=== PATIENT | male | born 1960 | race Caucasian/White ===

== ENCOUNTER 2018-12-02 19:15 | Observation (INO) ==
[2018-12-02] MEDS ORDERED: Isovue-370 500 ML BOTTLE IVP ONE (19:34)
[2018-12-02] MEDS ORDERED: Nitroglycerin 0.4 MG TAB.SUBL SL STA (19:34)
[2018-12-02 20:21] LABS: Basophils % 0.4 %; Eosinophils # 0.1 K/mcL (0.0-0.6); Eosinophils % 0.7 %; Hematocrit 45.9 % (37.5-50.1); Hemoglobin 14.8 g/dL (12.9-16.9); Immature Granulocytes % 0.2 % (0-4); Lymphocytes # 1.3 K/mcL (0.6-4.6); Mean Corpuscular HGB Conc 32.2 g/dL (31.6-35.5); Mean Corpuscular Hemoglobin 26.2 pg (28.0-33.3); Mean Corpuscular Volume 81.2 fL (83.0-100.0); Mean Platelet Volume 10.5 fL (9.4-12.4); Monocytes # 0.6 K/mcL (0.0-1.3); Monocytes % 7.6 %; Neutrophils # 6.4 K/mcL (1.6-8.9); Platelet Count 279 K/mcL (140-400); Red Blood Count 5.65 M/mcL (4.19-5.50); Red Cell Distribution Width 17.3 % (11.5-14.5); Segmented Neutrophils % 76.1 %
[2018-12-02 20:32] LABS: Calcium 10.1 mg/dL (8.6-10.3); Potassium 3.5 mEq/L (3.5-5.1); Troponin I 0.03 ng/mL (< 0.04)
[2018-12-02] MEDS ORDERED: Nitroglycerin 1 INCH/GM PACKET TP ONE (21:26)
--- NOTE | 2018-12-02 21:31 | Emergency Department Note ---
Disposition Clinical Impression: Chest pain Qualifiers: Chest pain type: unspecified Qualified Code(s): R07.9 - Chest pain, unspecified Disposition: Admitted As Inpatient Condition: Good Referrals: Roseann Victoria CNP [Primary Care Provider] - Forms: ED Satisfaction Letter Time of Disposition: 22:00 General Adult HPI - General Chief complaint: ED Chest Pain Stated complaint: Chest Pain Time Seen by Provider: 12/02/18 19:24 Source: patient, EMS Limitations: no limitations Nursing Notes Reviewed: Yes Vital Signs Reviewed: Yes - History of Present Illness HPI Narrative: 57-year-old gentleman presents for chief complaint of central chest pressure with diaphoresis and mild shortness of breath with exertion just prior to arrival. 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 He went into the cool air and symptoms did not resolve so he came in for evaluation. He denies vomiting, cough or cold, GI or symptoms. He notes mild pedal edema which he states is at baseline. He denies any remitting factors. He took aspirin prior to arrival. He states that he felt fine until this afternoon. He has a CABG more than 10 years ago and states that he had a stress test within the last 2 years which was normal. Pain Scale: 3 - Related Data Home Medications Medication Instructions Recorded Confirmed Allopurinol [Zyloprim 300 MG] 300 mg PO DAILY 02/10/18 12/02/18 Atorvastatin [Lipitor] 40 mg PO HS 02/10/18 12/02/18 BuPROPion SR (12 HR) [Wellbutrin 150 mg PO BID 02/10/18 12/02/18 SR] Cholecalciferol (D-3) [Vitamin D] 5,000 unit PO DAILY 02/10/18 12/02/18 Cyanocobalamin (Vitamin B-12) 500 mcg PO BID 02/10/18 12/02/18 [Vitamin B-12] Furosemide [Lasix] 20 mg PO DAILY 02/10/18 12/02/18 Isosorbide MONOnitrate [Isosorbide 20 mg PO TID 02/10/18 12/02/18 Mononitrate] Multivitamin [One Daily 1 tab PO DAILY 02/10/18 12/02/18 Multivitamin] Pantoprazole Sodium [Protonix] 40 mg PO DAILY 02/10/18 12/02/18 amLODIPine [Norvasc] 5 mg PO DAILY 02/10/18 12/02/18 Calcium Citrate 2 PO BID 12/02/18 Docusate Sodium [Stool Softener] 50 mg PO BID 12/02/18 12/02/18 Tizanidine HCl 4 mg PO BID 12/02/18 12/02/18 Allergies Allergy/AdvReac Type Severity Reaction Status Date / Time Enoxaparin [From Lovenox] Allergy Rash Verified 02/10/18 06:50 NSAIDS (Non-Steroidal AdvReac See Verified 02/10/18 07:49 Anti-Inflamma Comments tape Allergy See Uncoded 04/10/16 09:37 Comments Steroids AdvReac See Uncoded 02/10/18 07:49 Comments All systems ED: reviewed and negative except as stated. Past Medical History - Past Medical History Attestation: Yes The following information was validated with the patient. Source: patient Medical history: Reports: asthma, cancer, diabetes, hyperlipidemia, hypertension, myocardial infarction Surgical history: Reports: cancer surgery, cholecystectomy Psychiatric history: Reports: no psych history - Social History Smoking Status: Former smoker Smokeless Tobacco Status: No Alcohol use: Reports: none Drug use: Reports: none Physical Exam - General Limitations: no limitations General appearance: alert, in no apparent distress - Head Head exam: atraumatic, normocephalic - Eye Eye exam: Present: normal appearance, PERRL - ENT ENT exam: normal exam, normal oropharynx - Neck Neck exam: Present: normal inspection, full ROM - Chest Chest inspection: Present: normal inspection, symmetric chest wall rise. Absent: tenderness - Respiratory Respiratory exam: Present: normal lung sounds bilaterally, respiratory distress - Cardiovascular Cardiovascular exam: Present: regular rate, normal rhythm - Abdominal Exam Abdominal exam: Present: soft, Non-Tender - Extremities Exam Extremities exam: Present: pedal edema (Mild pedal edema which is slightly worse in the right than the left). Absent: tenderness - Back Exam Back exam: Present: normal inspection, full ROM - Neurological Exam Neurological exam: Present: alert, oriented X3, CN II-XII intact - Psychiatric Psychiatric exam: Present: normal affect, normal mood - Skin Skin exam: Present: warm, dry Course Course Narrative: 57-year-old gentleman with multiple comorbidities and prior CAD status post CABG presents for chief complaint of chest pain and lightheadedness. He notes his chest pain is about 75% better after nitroglycerin under his tongue. I gave him nitro paste for further treatment. Initial troponin is negative. EKG interpreted by me shows sinus tachycardia at 105 with left axis deviation and normal intervals. No ST elevation or depression. There is poor R-wave progression. Abnormal EKG. PE study was negative. Patient met in for further evaluation and management of his chest pain. Vital Signs Temperature 98.5 F 12/02/18 19:21 Pulse Rate 103 12/02/18 19:21 Respiratory Rate 16 12/02/18 19:21 Blood Pressure 146/79 12/02/18 19:21 O2 Sat by Pulse Oximetry 95 12/02/18 19:21 Temperature 98.5 F 12/02/18 19:21 Pulse Rate 89 12/02/18 21:45 Respiratory Rate 18 12/02/18 21:45 Blood Pressure 159/105 12/02/18 21:45 O2 Sat by Pulse Oximetry 96 12/02/18 21:45 Oxygen Delivery Oxygen Delivery Room Air Medical Decision Making - Lab Data Result diagrams: 12/02/18 19:41 12/02/18 19:41 Lab Results 12/02/18 12/02/18 Range/Units 19:41 19:41 WBC 8.4 (4.3-11.1) K/mcL RBC 5.65 H (4.19-5.50) M/mcL Hgb 14.8 (12.9-16.9) g/dL Hct 45.9 (37.5-50.1) % MCV 81.2 L (83.0-100.0) fL MCH 26.2 L (28.0-33.3) pg MCHC 32.2 (31.6-35.5) g/dL RDW 17.3 H (11.5-14.5) % Plt Count 279 (140-400) K/mcL MPV 10.5 (9.4-12.4) fL Immature Gran % 0.2 (0-4) % Seg Neutrophils % 76.1 % Lymphocytes % 15.0 % Monocytes % 7.6 % Eosinophils % 0.7 % Basophils % 0.4 % Neutrophils # 6.4 (1.6-8.9) K/mcL Lymphocytes # 1.3 (0.6-4.6) K/mcL Monocytes # 0.6 (0.0-1.3) K/mcL Eosinophils # 0.1 (0.0-0.6) K/mcL Basophils # 0.0 (0.0-0.2) K/mcL Sodium 140 (136-145) mEq/L Potassium 3.5 (3.5-5.1) mEq/L Chloride 103 (98-107) mEq/L Carbon Dioxide 22 L (23-29) mEq/L BUN 23 H (6-20) mg/dL Creatinine 1.62 H (0.70-1.30) mg/dL Est GFR ( Amer) 53 L (> 60) Est GFR (Non-Af Amer) 44 L (> 60) BUN/Creatinine Ratio 14 (6-26) Glucose 125 H (70-105) mg/dL Calculated Osmolality 295 (280-300) Calcium 10.1 (8.6-10.3) mg/dL Troponin I 0.03 (< 0.04) ng/mL
[2018-12-03] MEDS ORDERED: Naloxone 0.4 MG/ML INJ IVP PRN (04:09)
[2018-12-03] MEDS ORDERED: 0.9 % Sodium Chloride 1,000 ML IVC ONE (04:11)
[2018-12-03 05:00] LABS: Hematocrit 42.9 % (37.5-50.1); Hemoglobin 13.9 g/dL (12.9-16.9); Mean Corpuscular HGB Conc 32.4 g/dL (31.6-35.5); Mean Corpuscular Hemoglobin 26.3 pg (28.0-33.3); Mean Corpuscular Volume 81.3 fL (83.0-100.0); Mean Platelet Volume 10.8 fL (9.4-12.4); Platelet Count 268 K/mcL (140-400); Red Blood Count 5.28 M/mcL (4.19-5.50); Red Cell Distribution Width 16.1 % (11.5-14.5)
[2018-12-03 05:27] LABS: BUN/Creatinine Ratio 16 (6-26); Blood Urea Nitrogen 22 mg/dL (6-20); Carbon Dioxide 23 mEq/L (23-29); Chloride 103 mEq/L (98-107); Glucose 128 mg/dL (70-105); Osmolality,Calculated 291 (280-300); Potassium 3.2 mEq/L (3.5-5.1); Sodium 138 mEq/L (136-145); Troponin I 0.05 ng/mL (< 0.04); eGFR For Non-African Americans 52 (> 60)
[2018-12-03 06:36] LABS: Calcium 9.5 mg/dL (8.6-10.3)
--- NOTE | 2018-12-03 06:39 | Internal Med History&Physical ---
Date of Encounter: 12/03/18 Time of Encounter: 04:15 Internal Medicine - H&P: HPI Chief complaint: Chest pain Admitted From: Emergency Dept Plans for Post Hospital Care: Home History of present illness: Mr. Reed is a 57 year old male Patient presented to the emergency room with chest pain. 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 He was able to drive himself home where after discussion with his ambulance was called to bring him to the hospital for further evaluation. He has a history of previous heart attack in 1992, but states that there were no interventions made at that time. He has significant history of hypertension, and had recent adjustments made to his blood pressure medications. He also has significant history of gastric sleeve surgery. In the emergency room patient's initial vital signs showed a heart rate of 103 but otherwise were within normal limits. Initial CBC was within normal limits, and BMP demonstrated an AK I with a creatinine of 1.6 to and a glucose of 125. Troponin was 0.03. Chest x-ray showed no acute process and a CT angiogram showed no evidence of pulmonary embolism. EKG showed sinus tachycardia but no ST changes or ischemia. He was admitted to the hospital for further management. Upon my evaluation, patient is resting comfortably in the hospital bed in no acute distress. He states that his chest pain has improved, and causes only mild discomfort now. There is no radiation of the pain. He denies abdominal pain, nausea, vomiting, diarrhea and constipation. He denies history of kidney problems and diabetes. He has a family history of heart attack and stroke on his father's side of the family and his mother had Raina's disease. He is a full code. Past Med Surg Social Fam HX - Past Medical History Medical history: asthma, cancer, diabetes, hyperlipidemia, hypertension, myocardial infarction Additional medical history: breast cancer Psychiatric history: no psych history - Past Surgical History Surgical History: cholecystectomy, orthopedic, other Additional surgical history: left breast removal, gastric sleeve, Right ankle fusion - Social History Smoking Status: Former smoker Smokeless Tobacco Status: No Alcohol use: none Drug use: none - Family History Father Living Status: Still Living Hx Family Cardiac Disorders: Yes (Mi) Hx Family Neurologic Disorders: Yes (CVA) Mother Living Status: Hx Family Respiratory Disorders: Yes (Jada's) Internal Medicine - H&P: Meds Allopurinol [Zyloprim 300 MG] 300 mg PO DAILY 02/10/18 [History] Atorvastatin [Lipitor] 40 mg PO HS 02/10/18 [History] BuPROPion SR (12 HR) [Wellbutrin SR] 150 mg PO BID 02/10/18 [History] Cholecalciferol (D-3) [Vitamin D] 5,000 unit PO DAILY 02/10/18 [History] Cyanocobalamin (Vitamin B-12) [Vitamin B-12] 500 mcg PO BID 02/10/18 [History] Furosemide [Lasix] 20 mg PO DAILY 02/10/18 [History] Isosorbide MONOnitrate [Isosorbide Mononitrate] 20 mg PO TID 02/10/18 [History] Multivitamin [One Daily Multivitamin] 1 tab PO DAILY 02/10/18 [History] Pantoprazole Sodium [Protonix] 40 mg PO DAILY 02/10/18 [History] amLODIPine [Norvasc] 5 mg PO DAILY 02/10/18 [History] Calcium Citrate 2 PO BID 12/02/18 [History] Docusate Sodium [Stool Softener] 50 mg PO BID 12/02/18 [History] Tizanidine HCl 4 mg PO BID 12/02/18 [History] Allergy/AdvReac Type Severity Reaction Status Date / Time Enoxaparin [From Lovenox] Allergy Rash Verified 02/10/18 06:50 NSAIDS (Non-Steroidal AdvReac See Verified 02/10/18 07:49 Anti-Inflamma Comments tape Allergy See Uncoded 04/10/16 09:37 Comments Steroids AdvReac See Uncoded 02/10/18 07:49 Comments All Systems PM: A 10-system review of systems was performed and is negative for pertinent findings except as documented above in the HPI. - Constitutional Vitals: Temp Pulse Resp BP Pulse Ox 97.9 F 60 16 134/75 97 12/03/18 03:10 12/03/18 03:10 12/03/18 03:10 12/03/18 03:10 12/03/18 03:10 General appearance: Present: cooperative, A&O X 3, pleasant, no acute distress, obese, answers questions appropriately Exam: - - Head Head exam: Present: normal inspection - Eye Eye exam: Present: EOMI, normal appearance - Respiratory Respiratory exam: Present: CTAB. Absent: rales, respiratory distress, rhonchi, wheezes - Cardiovascular Cardiovascular exam: Present: RRR. Absent: diastolic murmur, systolic murmur - GI/Abdominal GI/Abdominal exam: Present: normal bowel sounds, soft. Absent: tenderness - Extremities Exam Extremities exam: Present: warm, radial pulses palpable and symmetrical. Absent: calf tenderness, pedal edema, tenderness - Neurological Exam Neurological exam: Present: no focal deficits, strengths equal and symetr throughout. Absent: motor sensory deficit, facial droop, speech deficit - Skin Skin exam: Present: dry, normal color, warm Internal Med - H&P Results - Labs CBC & Chem 7: 12/03/18 03:57 12/03/18 03:57 Labs: Short CBC 12/02/18 12/03/18 Range/Units 19:41 03:57 WBC 8.4 6.1 (4.3-11.1) K/mcL Hgb 14.8 13.9 (12.9-16.9) g/dL Hct 45.9 42.9 (37.5-50.1) % Plt Count 279 268 (140-400) K/mcL Neutrophils # 6.4 (1.6-8.9) K/mcL BMP 12/02/18 12/03/18 19:41 03:57 Sodium 140 138 Potassium 3.5 3.2 L Chloride 103 103 Carbon Dioxide 22 L 23 BUN 23 H 22 H Creatinine 1.62 H 1.40 H Glucose 125 H 128 H Calcium 10.1 Cardiac Enzymes 12/02/18 12/03/18 Range/Units 19:41 03:57 Troponin I 0.03 0.05 H* (< 0.04) ng/mL - Impressions ITS Impressions Chest X-Ray 12/02/18 19:25 IMPRESSION: No acute process. D/ / Khris Cason MD / Khris Cason MD Interpreting Provider: Khris Cason MD Chest CTA 12/02/18 19:33 IMPRESSION: No evidence of pulmonary embolism or acute pulmonary abnormality. D/ / Lon Jang MD / Lon Jang MD Interpreting Provider: Lon Jang MD - Assessment and Plan (1) Chest pain Current Visit: Yes Status: Acute Assessment and plan: Patient presented with chest pain, particularly with exertion. Initial troponin was 0.03, and on repeat troponin was 0.05. Patient's chest pain has improved, and EKG is negative for ischemia. Continue to trend troponins Cardiac monitoring Echocardiogram in the morning Consider anticoagulation if troponin continue to elevate, consult cardiology. Patient has an allergy to enoxaparin, causing a rash. We will hold off on heparin for now Qualifiers: Chest pain type: unspecified Qualified Code(s): R07.9 - Chest pain, unspecified (2) Acute kidney injury Current Visit: Yes Status: Acute Assessment and plan: Patient's renal function on admission showed a creatinine of 1.6 to in a GFR of 44. Patient denied history of kidney disease. On repeat labs patient's creatinine improved 1.40. Continue IV fluid hydration Avoid nephrotoxic medications (3) Hypertension Current Visit: Yes Status: Acute Assessment and plan: Currently controlled. Continue to monitor Continue home meds at discharge Qualifiers: Hypertension type: essential hypertension Qualified Code(s): I10 - Essential (primary) hypertension (4) DVT prophylaxis Current Visit: Yes Status: Acute Assessment and plan: SCDs - Time Spent With Patient Total time spent is greater than 50% in coordination of care (as documented) at patient's floor/unit and/or counseling patient: Greater than 35 minutes
--- NOTE | 2018-12-03 09:37 | Electrocardiograph Report ---
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
[2018-12-03] MEDS ORDERED: Regadenoson 0.4 MG/5 ML SYRINGE IVP ONE ×2 (12:01→12:03)
--- NOTE | 2018-12-03 12:39 | Electrocardiograph Report ---
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
--- NOTE | 2018-12-03 12:45 | Internal Med Progress Note ---
Hospitalist Progress Note - Encounter Date of Encounter: 12/03/18 Time of Encounter: 11:15 - Subjective Interval History: Mr. Reed is a 57 year old male with known PMH of HTN, HLD, DM2 ad ?? [place] and morbidly obese pt presented to ER with sub sternal CP associated with SOB and diaphoresis. 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 He denied any active CP Now. His Trop peaked at 0.05 and trended down to 0.04. Denied any active CP now. - Exam Vitals: Temp Pulse Resp BP Pulse Ox 98.0 F 59 15 155/88 95 12/03/18 11:52 12/03/18 11:52 12/03/18 11:52 12/03/18 11:52 12/03/18 11:52 Exam: Gen: Alert, awake, Oriented to time,place and person Chest: Diminished breath sounds B/L, No wheezing, No crackles, No rales Heart: S1S2+ RRR No murmurs Abd: Soft, NT, BS +, No organomegaly Ext: No edema, pulses are palpable, No calf tenderness Neuro : Benign findings Skin: No rash. - Assessment and Plan (1) Chest pain Current Visit: Yes Status: Acute Assessment and Plan: His trop peaked at 0.05 and came down to 0.04 elevated troponin mostly demand ischemia as well as due to ABHI too However since he is high risk for ACS, will do stress test He does need 2 days stress cont ASA, Statin and BB (2) Acute kidney injury Current Visit: Yes Status: Acute Assessment and Plan: Due to dehydration cont gentle IVF trend on Cr (3) HLD (hyperlipidemia) Current Visit: Yes Status: Chronic Assessment and Plan: On statin (4) Hypertension Current Visit: Yes Status: Acute Assessment and Plan: stable BP resumed all home meds (5) Morbid obesity with BMI of 50.0-59.9, adult Current Visit: Yes Status: Acute Assessment and Plan: Counseled to loose weight and diet modifications - Time Spent with Patient Total time spent is greater than 50% in coordination of care (as documented) at patient's floor/unit and/or counseling patient: Internal Medicine: Result - Labs CBC & Chem 7: 12/03/18 03:57 12/03/18 03:57 Labs: Short CBC 12/02/18 12/03/18 Range/Units 19:41 03:57 WBC 8.4 6.1 (4.3-11.1) K/mcL Hgb 14.8 13.9 (12.9-16.9) g/dL Hct 45.9 42.9 (37.5-50.1) % Plt Count 279 268 (140-400) K/mcL Neutrophils # 6.4 (1.6-8.9) K/mcL BMP 12/02/18 12/03/18 19:41 03:57 Sodium 140 138 Potassium 3.5 3.2 L Chloride 103 103 Carbon Dioxide 22 L 23 BUN 23 H 22 H Creatinine 1.62 H 1.40 H Glucose 125 H 128 H Calcium 10.1 9.5 Cardiac Enzymes 12/02/18 12/03/18 12/03/18 Range/Units 19:41 03:57 09:53 Troponin I 0.03 0.05 H* 0.04 H* (< 0.04) ng/mL - Impressions Impressions Chest X-Ray 12/02/18 19:25 IMPRESSION: No acute process. D/ / Khris Cason MD / Khris Cason MD Interpreting Provider: Khris Cason MD Chest CTA 12/02/18 19:33 IMPRESSION: No evidence of pulmonary embolism or acute pulmonary abnormality. D/ / Lon Jang MD / Lon Jang MD Interpreting Provider: Lon Jang MD Echocardiogram 12/03/18 06:35 Impressions: LVEF 55-60%. Mild concentric left ventricular hypertrophy. Mild left ventricular diastolic dysfunction. Normal right ventricular structure and function. Mild tricuspid regurgitation. No pulmonary hypertension. Left Ventricular Wall Motion: Rest Echo Findings All wall segments showed normal motion. Findings: Study Quality * Technically adequate exam. ECG Findings * Normal sinus rhythm. Left Ventricle * LVEF 55-60%. * Mild concentric left ventricular hypertrophy. * Mild left ventricular diastolic dysfunction. Right Ventricle * Normal right ventricular structure and function. Left Atrium * Moderately dilated left atrium. Right Atrium * Normal right atrial size. Aortic Valve * Aortic valve not well visualized. * No aortic regurgitation. * No aortic stenosis. Mitral Valve * No mitral regurgitation. * Normal mitral valve structure. * No mitral stenosis. Tricuspid Valve * Tricuspid valve not well visualized. * Mild tricuspid regurgitation. * Estimated RA pressure is 3 mmHg. * Estimated RVSP is 24 mmHg. * No pulmonary hypertension. Pulmonic Valve * Pulmonic valve is not well visualized. * No pulmonic stenosis. * No pulmonic regurgitation. Pulmonary Artery * Pulmonary artery not well visualized. Aorta * Normally sized aortic root. Pericardium * There is no pericardial effusion present. Interatrial Septum * No evidence of PFO by color Doppler. IVC * Normal IVC dimensions and inspiratory collapse. Consult Discharge Plan - Plan Referrals: Roseann Victoria CNP [Primary Care Provider] - 12/08/18 8:30 am (1) Chest pain Qualifiers: Chest pain type: unspecified Qualified Code(s): R07.9 - Chest pain, unspecified (3) HLD (hyperlipidemia) Qualifiers: Hyperlipidemia type: unspecified Qualified Code(s): E78.5 - Hyperlipidemia, unspecified (4) Hypertension Qualifiers: Hypertension type: essential hypertension Qualified Code(s): I10 - Essential (primary) hypertension
[2018-12-03] MEDS: amLODIPine 5 MG TABLET PO SCH (14:20)
[2018-12-03] MEDS: ISOSORBIDE MONONITRATE 20 MG PO SCH ×2 (14:22→20:40)
[2018-12-03] MEDS: tiZANidine 4 MG TABLET PO SCH (20:39)
[2018-12-03] MEDS: BuPROPion SR (12 HR) 150 MG TABLET PO SCH (20:39)
[2018-12-03] MEDS: Docusate Oral Soln 100 MG/10 ML UDC PO SCH (20:39)
[2018-12-04 07:00] LABS: BUN/Creatinine Ratio 15 (6-26); Blood Urea Nitrogen 18 mg/dL (6-20); Calcium 9.1 mg/dL (8.6-10.3); Carbon Dioxide 26 mEq/L (23-29); Chloride 105 mEq/L (98-107); Glucose 107 mg/dL (70-105); Osmolality,Calculated 292 (280-300); Potassium 3.5 mEq/L (3.5-5.1); Sodium 140 mEq/L (136-145); eGFR For Non-African Americans > 60 (> 60)
[2018-12-04] MEDS: Docusate Oral Soln 100 MG/10 ML UDC PO SCH ×2 (09:00→20:32)
[2018-12-04] MEDS: Aspirin Enteric Coated 81 MG Tablet PO SCH (09:00)
[2018-12-04] MEDS: BuPROPion SR (12 HR) 150 MG TABLET PO SCH ×2 (09:00→20:32)
[2018-12-04] MEDS: tiZANidine 4 MG TABLET PO SCH ×2 (09:00→20:32)
[2018-12-04] MEDS: Multivit/Ca/Min/Fe/FA 1 TAB TABLET PO SCH (09:00)
[2018-12-04] MEDS: Furosemide 20 MG TABLET PO SCH (09:00)
[2018-12-04] MEDS: amLODIPine 5 MG TABLET PO SCH (09:01)
[2018-12-04] MEDS: ISOSORBIDE MONONITRATE 20 MG PO SCH ×3 (09:01→20:32)
--- NOTE | 2018-12-04 13:47 | Cardiology Consult Note ---
Date of Encounter: 12/04/18 Time of Encounter: 13:45 Assessment and Plan (1) Abnormal stress test Current Visit: Yes Status: Acute Presented with chest pain associated with dyspnea, diaphoresis. Was intermittent until last night, now resolved. No alleviating or exacerbating factors. Risk factors HTN, HLD, DM, obesity. Troponin 0.03, 0.05, 0.04 in setting of ABHI (now resolved). Underwent 2 day stress test which showed perfusion imaging was positive for ischemia. There is a small sized reversible perfusion defect which is mild to moderate in intensity in the basal- and mid-inferior segments. SDS=3. Gated EF = 58%. Cardiology consulted for further recs. TTE LVEF 55-60%. Mild cLVH. Mild LVDD. Normal RV structure and function. Mild TR. No phtn. Discussed with pt medical management vs LHC. He would like to proceed with LHC. R/B/A discussed. LHC tomorrow. (2) Chest pain Current Visit: Yes Status: Acute As above. Qualifiers: Chest pain type: unspecified Qualified Code(s): R07.9 - Chest pain, unspecified Discussion w patient/family: The assessment and plan as outlined above was discussed with the patient and/or family members who expressed understanding and agreement. All questions were answered. Thank you for involving us in the care of your patient. Please call with any questions. I will discuss all the above with Dr. Gomez and make changes as necessary. History of Present Illness Consult date: 12/04/18 Requesting physician: Kyra Tilley Consult reason: abnormal stress Chief complaint: chest pain History of present illness: Mr. Reed is a 57 year old male with PMH of HTN, HLD, DM, obesity s/p gastric sleeve surgery that presented to the ED with chest pain. 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 He was able to drive himself home where he then called EMS. Chest pain was intermittent before resolving last night. Reports he had a heart attack in 1992, but states he never had a LHC. ABHI on admission with creatinine of 1.60 now improved. Troponin 0.03, 0.05, 0.04. CXR showed no acute process and a CT angiogram showed no evidence of pulmonary embolism. He underwent a 2 day stress test which showed perfusion imaging was positive for ischemia. There is a small sized reversible perfusion defect which is mild to moderate in intensity in the basal- and mid-inferior segments. SDS=3. Gated EF = 58%. Cardiology consulted for further recs. TTE LVEF 55-60%. Mild cLVH. Mild LVDD. Normal RV structure and function. Mild TR. No phtn. Past Med Surg Social Fam HX - Past Medical History Medical history: asthma, cancer, diabetes, hyperlipidemia, hypertension, myocardial infarction Additional medical history: breast cancer Psychiatric history: no psych history - Past Surgical History Surgical History: cholecystectomy, orthopedic, other Additional surgical history: left breast removal, gastric sleeve, Right ankle fusion - Social History Smoking Status: Former smoker Smokeless Tobacco Status: No Alcohol use: none Drug use: none - Family History Father Living Status: Still Living Hx Family Cardiac Disorders: Yes (Mi) Hx Family Neurologic Disorders: Yes (CVA) Mother Living Status: Hx Family Respiratory Disorders: Yes (Jada's) Medications and Allergies Allopurinol [Zyloprim 300 MG] 300 mg PO DAILY 02/10/18 [History] Atorvastatin [Lipitor] 40 mg PO HS 02/10/18 [History] BuPROPion SR (12 HR) [Wellbutrin SR] 150 mg PO BID 02/10/18 [History] Cholecalciferol (D-3) [Vitamin D] 5,000 unit PO DAILY 02/10/18 [History] Cyanocobalamin (Vitamin B-12) [Vitamin B-12] 500 mcg PO DAILY 02/10/18 [History] Furosemide [Lasix] 20 mg PO DAILY 02/10/18 [History] Isosorbide MONOnitrate [Isosorbide Mononitrate] 20 mg PO TID 02/10/18 [History] Multivitamin [One Daily Multivitamin] 1 tab PO DAILY 02/10/18 [History] Pantoprazole Sodium [Protonix] 40 mg PO DAILY 02/10/18 [History] amLODIPine [Norvasc] 5 mg PO DAILY 02/10/18 [History] Ca Citrate/Mgox/Vit D3/B6/Min [Calcium Citrate Plus Tablet] 2 each PO DAILY 12/02/18 [History] Docusate Sodium [Stool Softener] 100 mg PO BID 12/02/18 [History] Tizanidine HCl 8 mg PO HS 12/02/18 [History] HYDROcodone/Acet 10/325 mg [[place] 10-325 mg] 1 tab PO Q12H PRN 12/04/18 [History] Losartan Potassium 50 mg PO DAILY 12/04/18 [History] Allergy/AdvReac Type Severity Reaction Status Date / Time Enoxaparin [From Lovenox] Allergy Rash Verified 12/04/18 10:49 NSAIDS (Non-Steroidal AdvReac See Verified 12/04/18 10:49 Anti-Inflamma Comments tape Allergy See Uncoded 12/04/18 10:49 Comments Steroids AdvReac See Uncoded 12/04/18 10:49 Comments All Systems Review: The remainder of the systems were reviewed and are negative - Cardiovascular Cardiovascular: as per HPI, chest pain at rest, diaphoresis Physical Examination Vital Signs, Last 4 Hours Temp Pulse Resp BP Pulse Ox 12/04/18 12:27 97.5 F L 78 16 132/62 96 Vital Signs Temp Pulse Resp BP Pulse Ox 12/04/18 12:27 97.5 F L 78 16 132/62 96 12/03/18 23:32 55 17 138/69 95 12/03/18 19:22 97.7 F 63 14 143/71 95 12/03/18 15:51 97.6 F 81 17 175/79 97 Intake and Output 12/03/18 12/04/18 12/04/18 23:59 07:59 15:59 Intake Total 350 / 1590 360 / 360 Balance 350 / 1590 360 / 360 Intake: Oral 350 / 590 360 / 360 Other: Meal water pitcher Breakfast Percent of Meal Consumed 95% General: Conversant, No Apparent Distress HEENT: Atraumatic, Normocephaly, Mucus Membranes Moist Neck: No JVD, Normal carotid pulses Cardiac: Reg Rate and Rhythm, Normal S1 and S2, No Murmur Lungs: Normal Breath Sounds, No Wheeze, Rales, Rhonchi Neuro: Alert and responsive, No focal deficits noted Abdomen: Soft, Non-Tender Skin: No rashes noted on visualized skin Musculoskeletal: No Chest Wall Tenderness Extremities: No Clubbing, No Cyanosis, No Edema, Normal Pulses Results 12/03/18 03:57 12/04/18 05:03 Lab Results 12/04/18 05:03 Sodium 140 Potassium 3.5 Chloride 105 Carbon Dioxide 26 BUN 18 Creatinine 1.21 Glucose 107 H Calcium 9.1 BMP 12/04/18 Range/Units 05:03 Sodium 140 (136-145) mEq/L Potassium 3.5 (3.5-5.1) mEq/L Chloride 105 (98-107) mEq/L Carbon Dioxide 26 (23-29) mEq/L BUN 18 (6-20) mg/dL Creatinine 1.21 (0.70-1.30) mg/dL Glucose 107 H (70-105) mg/dL Calcium 9.1 (8.6-10.3) mg/dL Active Medications Allopurinol (Zyloprim) 300 mg PO DAILY [facility] Stop: 06/05/19 09:01 Last Admin: 12/04/18 09:01 Dose: 300 mg Documented by: Amlodipine Besylate (Norvasc) 5 mg PO DAILY [facility]; Protocol Stop: 06/04/19 11:31 Last Admin: 12/04/18 09:01 Dose: 5 mg Documented by: Aspirin (Aspirin Ec) 81 mg PO DAILY [facility] Stop: 06/05/19 09:01 Last Admin: 12/04/18 09:00 Dose: 81 mg Documented by: Atorvastatin Calcium (Lipitor) 40 mg PO HS [facility] Stop: 06/04/19 21:01 Last Admin: 12/03/18 20:39 Dose: 40 mg Documented by: Bupropion HCl (Wellbutrin Sr) 150 mg PO BID [facility] Stop: 06/04/19 21:01 Last Admin: 12/04/18 09:00 Dose: 150 mg Documented by: Docusate Sodium (Colace) 50 mg PO BID [facility] Stop: 06/04/19 21:01 Last Admin: 12/04/18 09:00 Dose: Not Given Documented by: Furosemide (Lasix) 20 mg PO DAILY [facility] Stop: 06/05/19 09:01 Last Admin: 12/04/18 09:00 Dose: 20 mg Documented by: Multivitamins/Calcium (Thera M Plus) 1 tab PO DAILY [facility] Stop: 06/05/19 09:01 Last Admin: 12/04/18 09:00 Dose: 1 tab Documented by: Naloxone HCl (Narcan) 0.4 mg IVP Q2MPRN PRN PRN Reason: SEE COMMENTS Stop: 11/28/19 04:10 Omeprazole (Prilosec) 20 mg PO 0730 [facility] Stop: 06/05/19 07:31 Last Admin: 12/04/18 05:51 Dose: Not Given Documented by: Pharmacy Profile Note (Patient Taking Own Medication) 1 each PO TID [facility] Stop: 06/04/19 15:01 Last Admin: 12/04/18 09:01 Dose: Not Given Documented by: Tizanidine HCl (Zanaflex) 4 mg PO BID [facility] Stop: 06/04/19 21:01 Last Admin: 12/04/18 09:00 Dose: 4 mg Documented by: - Imaging and Cardiology Stress Test: report reviewed Echo: report reviewed - EKG Interpretation EKG results cardiology: personally reviewed Consult Discharge Plan - Plan Referrals: Roseann Victoria CNP [Primary Care Provider] - 12/08/18 8:30 am
--- NOTE | 2018-12-04 14:40 | Internal Med Progress Note ---
Hospitalist Progress Note - Encounter Date of Encounter: 12/04/18 Time of Encounter: 14:33 - Subjective Interval History: Mr. Reed is a 57 year old male with known PMH of HTN, HLD, DM2 ad ?? MO and morbidly obese pt presented to ER with sub sternal CP associated with SOB and diaphoresis. He was admitted in the hospital and placed him on cardiac specialist. He denied any active CP Now. His Trop peaked at 0.05 and trended down to 0.04. Denied any active CP now. He did go for nuclear stress test. No events over night. - Exam Vitals: Temp Pulse Resp BP Pulse Ox 97.5 F L 78 16 132/62 96 12/04/18 12:27 12/04/18 12:27 12/04/18 12:27 12/04/18 12:27 12/04/18 12:27 Exam: Gen: Alert, awake, Oriented to time,place and person Chest: Diminished breath sounds B/L, No wheezing, No crackles, No rales Heart: S1S2+ RRR No murmurs Abd: Soft, NT, BS +, No organomegaly Ext: No edema, pulses are palpable, No calf tenderness Neuro : Benign findings Skin: No rash. - Assessment and Plan (1) Chest pain Current Visit: Yes Status: Acute Assessment and Plan: His trop peaked at 0.05 and came down to 0.04 elevated troponin mostly demand ischemia as well as due to ABHI too However since he is high risk for ACS, he did go for nuclear stress test. His nuclear stress test came back as abnormal with small sized reversible perfusion defect which is mild to moderate in intensity in the basal- and mid- inferior segments cont ASA, Statin and BB consulted cardiology for further evaluation.. Scheduled for LHC in AM (2) Acute kidney injury Current Visit: Yes Status: Acute Assessment and Plan: Due to dehydration Improving Cr @ 1.21 today He might have mild CKD-2 too Cont trend on Cr started him Acetylcystiene for renal protection since he is going for LHC in AM (3) HLD (hyperlipidemia) Current Visit: Yes Status: Chronic Assessment and Plan: On statin (4) Hypertension Current Visit: Yes Status: Acute Assessment and Plan: stable BP resumed all home meds (5) Morbid obesity with BMI of 50.0-59.9, adult Current Visit: Yes Status: Acute Assessment and Plan: Counseled to loose weight and diet modifications - Time Spent with Patient Total time spent is greater than 50% in coordination of care (as documented) at patient's floor/unit and/or counseling patient: Internal Medicine: Result - Labs CBC & Chem 7: 12/03/18 03:57 12/04/18 05:03 Labs: BMP 12/04/18 05:03 Sodium 140 Potassium 3.5 Chloride 105 Carbon Dioxide 26 BUN 18 Creatinine 1.21 Glucose 107 H Calcium 9.1 Consult Discharge Plan - Plan Referrals: Roseann Victoria, [employer] [Primary Care Provider] - 12/08/18 8:30 am (1) Chest pain Qualifiers: Chest pain type: unspecified Qualified Code(s): R07.9 - Chest pain, unspecified (3) HLD (hyperlipidemia) Qualifiers: Hyperlipidemia type: unspecified Qualified Code(s): E78.5 - Hyperlipidemia, unspecified (4) Hypertension Qualifiers: Hypertension type: essential hypertension Qualified Code(s): I10 - Essential (primary) hypertension
[2018-12-04] MEDS: Isosorbide MONOnitrate (24 HR) 60 MG TAB.ER.24H PO SCH (14:54)
[2018-12-04] MEDS: *HR* Acetylcysteine 20% 600 MG/3 ML ORAL SYRINGE PO SCH (20:31)
[2018-12-05 08:19] LABS: BUN/Creatinine Ratio 15 (6-26); Blood Urea Nitrogen 13 mg/dL (6-20); Calcium 8.6 mg/dL (8.6-10.3); Carbon Dioxide 25 mEq/L (23-29); Chloride 109 mEq/L (98-107); Glucose 108 mg/dL (70-105); Osmolality,Calculated 289 (280-300); Potassium 3.5 mEq/L (3.5-5.1); Sodium 139 mEq/L (136-145); eGFR For Non-African Americans > 60 (> 60)
[2018-12-05] MEDS: *HR* Acetylcysteine 20% 600 MG/3 ML ORAL SYRINGE PO SCH (08:35)
[2018-12-05] MEDS: Aspirin Enteric Coated 81 MG Tablet PO SCH (08:36)
[2018-12-05] MEDS: Docusate Oral Soln 100 MG/10 ML UDC PO SCH (08:36)
[2018-12-05] MEDS: BuPROPion SR (12 HR) 150 MG TABLET PO SCH (08:36)
[2018-12-05] MEDS: Isosorbide MONOnitrate (24 HR) 60 MG TAB.ER.24H PO SCH (08:37)
[2018-12-05] MEDS: Multivit/Ca/Min/Fe/FA 1 TAB TABLET PO SCH (08:37)
[2018-12-05] MEDS: tiZANidine 4 MG TABLET PO SCH (08:37)
[2018-12-05] MEDS: amLODIPine 5 MG TABLET PO SCH (08:37)
[2018-12-05] MEDS: ISOSORBIDE MONONITRATE 20 MG PO SCH ×2 (08:37→12:23)
[2018-12-05] MEDS: Furosemide 20 MG TABLET PO SCH (08:37)
--- NOTE | 2018-12-05 10:49 | Pre-Sedation Evaluation ---
Pre-sedation evaluation - Pre-sedation checklist Date of procedure: 12/05/18 Procedure: cardiac cath Recent Vitals: Last Vital Signs Temp 97.9 F 12/05/18 06:50 Pulse 55 12/05/18 06:50 Resp 15 12/05/18 06:50 BP 128/77 12/05/18 06:50 Pulse Ox 93 12/05/18 06:50 H&P (including ROS) documented in medical record: Yes Previous reaction to sedatives/anesthetics: No Dietary Status: NPO after Midnight Airway Assessment: Patient can open mouth completely, TMJ function normal Dentition: No loose teeth or bridges Possible difficult airway: No ASA Classification *see protocol: CLASS II-Mild systemic disease Plan of Care: Pt appropriate candidate for procedure/moderate/conscious sedation Cardiac Registry (Cardio Only) - Functional Capacity Functional Capacity: >=4 METS with symptoms - Clincal Frailty Scale Clinical Frailty Scale: Well
[2018-12-05] MEDS ORDERED: 0.9 % Sodium Chloride 1,000 ML ONE ×2 (10:52)
[2018-12-05] MEDS ORDERED: Heparin 1,000 UNITS/500 mL 500 ML ONE ×2 (10:52→10:57)
[2018-12-05] MEDS ORDERED: *HR* Heparin 10,000 UNIT/10 ML VIAL ONE (10:52)
[2018-12-05] MEDS ORDERED: ISOVUE-370 200 ML INFUS..BTL ONE ×2 (10:52→10:57)
[2018-12-05] MEDS ORDERED: Nitroglycerin 1,000 MCG/10 ML VIAL IV ONE (10:52)
[2018-12-05] MEDS ORDERED: *HR* Midazolam HCl 2 MG/2 ML VIAL ONE (11:08)
[2018-12-05] MEDS ORDERED: Verapamil 5 MG/2 ML VIAL ONE (11:16)
[2018-12-05] MEDS ORDERED: Acetaminophen 325 MG TABLET PO PRN (11:46)
--- NOTE | 2018-12-05 11:46 | Event Note ---
Date of Encounter: 12/05/18 Time of Encounter: 11:45 - Cardiology Event Note Cath Completed LVEF 55% NOrmal dominant right with no disease Normal left coronary artery Recommend BP control non cardiac evaluation.
--- NOTE | 2018-12-05 11:57 | Invasive Diagnostic Lab Proc ---
Name: Delta Reed Date of Study: 12/05/2018 Date: 1960 Ht: 66.9in Medical Record#: [id number] Age: 57 Wt: 330.69lb Gender: Male BSA: 2.5 Order #: [id number] BMI: 51.9 Physicians Procedure Physician: Pete Archer MD Referring MD: Referring MD: Staff Name Position Time In Warren Rust RN Monitor 11:05 AM Tahira Campbell RT Scrub 11:08 AM Pinky Kothari RT (R) rt 11:08 AM Román Drew RN Nurse 11:14 AM Crystal Parekh RN Car Hopper 11:18 AM Procedures Performed Procedure L HRT ARTERY/VENTRICLE ANGIO Pre-Procedure Checklist Informed consent is complete signed and on chart. H&P is on chart. ID band is on and ID verified with patient. Patient NPO for procedure The procedure was described for the patient and questions were answered. Blood Pressure: 128/77 ECG is on chart. Rhythm: NSR Plan of Care Patient will tolerate the procedure without complications. Adequate level of comfort will be maintained. Hemodynamics will remain stable Patient will recover from procedure without complications. Respiratory function will be maintained. Cardiac rhythm will remain stable. Patient temperature will be maintained. Patient and/or family have verbalized understanding of the procedure. Patient Education Chief Complaint/Reason for Test: Cardiac Cath Developmental Category: Adult (18-64 years) Developmentally Appropriate for Age: Yes Learning Barriers: None Education Needs: Procedure Education Method: Verbal Information Taught: Cardiac Cath Educational Evaluation: Able to repeat information Intravenous Access Time IV Size Location DC'd Fluid/Drip Rate Units RN 20g 1 1/4" Patent On Arrival Lt Antecubital 0.9NaCl Crystal Parekh RN Allergies tape Enoxaparin Steroids NSAIDS (Non-Steroidal Anti-Inflamma Vital Signs Time BP (mmHg) HR (bpm) O2 Sat. RR (bpm) LOC 11:08 AM / % 5 = Fully awake and oriented or at pre-proc level 11:08 AM / % 4 = Oriented but drowsy 11:23 AM / % 5 = Fully awake and oriented or at pre-proc level 11:14 AM 179 / 103 65 99 % 21 11:18 AM 168 / 107 61 99 % 7 11:23 AM 171 / 106 60 97 % 10 11:28 AM 161 / 102 82 97 % 10 11:33 AM 177 / 105 73 93 % 9 11:38 AM 164 / 96 58 98 % 27 Procedural Medications Time Medication Dose Units Method Given By 11:19 AM Oxygen 2 L/min nasal cannula Crystal Parekh RN 11:14 AM Versed 2 mg Intravenous Crystal Parekh RN 11:23 AM Lidocaine 2% 3 ml Subcutaneous Pete Archer MD 11:26 AM Heparin 4000 units Nitroglycerin 200 mcg Verapamil 2.5 mg Intraarterial Pete Archer MD ASA Classification: CLASS II- Mild systemic disease (i.e. well-controlled diabetes, hypertension, asthma, cigarette smoking) Jacques Score Preprocedure Postprocedure Activity 2- Moves 4 extremities sustained head lift Activity 2- Moves 4 extremities sustained head lift Circulation 2- SBP +/= 20 points of pre-anesthetic level Circulation 2- SBP +/= 20 points of pre-anesthetic level Consciousness 2- Awake and alert oriented x 3 Consciousness 2- Awake and alert oriented x 3 O2 Saturation 2- Able to maintain O2 satruation of 92% on room air O2 Saturation 2- Able to maintain O2 satruation of 92% on room air Respiratory 2- Able to deep breathe and cough well Respiratory 2- Able to deep breathe and cough well Total Score 10 Total Score 10 Contrast Agent: Isovue Diagnostic Contrast: 75 ml Total Contrast: 75 ml Fluoro Dose: 76 mGy Procedure Log Time Note Enter By 10:59 AM CathStat 11:04 AM 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 well-controlled diabetes, hypertension, asthma, cigarette smoking) oparker 11:08 AM Warren Rust RN Position: Monitor Time in: 11:05 oparker 11:08 AM Tahira Campbell RT Position: Scrub Time in: 11:08 oparker 11:08 AM Pinky Kothari RT (R) Position: rt Time in: 11:08 oparker 11:08 AM Annabel dang oparker 11:08 AM Sign in performed according to hospital policy. Informed consent was obtained. oparker 11:08 AM Procedure start : oparker 11: AM Time: :LOC: 5 = Fully awake and oriented or at pre-proc level oparker 11: AM Time: :08 Patient comfortable and pain free: Yes oparker 11:08 AM Crystal Parekh RN Position: Car Hopper Time in: : oparker 11:12 AM Vitals capture started with the following parameters, Patient=Adult, Interval=5 min, Initial Oallitvk=809 mmHg, Deflation Rate=5 mmHg, Cuff placed on Left Arm 11:13 AM Recorded ECG: HR=64 Condition=Condition 1 11:14 AM HR=65 bpm, IHXY=847/103 mmhg, SpO2=99.0 %, Resp=21 B/min, EtCO2=33 mmHg, Comment=SR 11: AM Time: :14 Versed 2 mg Intravenous Given by Crystal Parekh RN oparker 11:14 AM Time: 11:14 Oxygen on at 2 L/min per nasal cannula by Crystal Parekh RN oparker 11:14 AM Román Drew RN Position: Nurse Time in: : oparker 11:14 AM Hair removed from procedure site in holding area using clippers. Right wrist and Right groin prepped with Chloraprep by Román Drew RN, then patient was draped. Skin intact. oparker 11:18 AM HR=61 bpm, VWHI=051/107 mmhg, SpO2=99.0 %, Resp=7 B/min, EtCO2=32 mmHg, Comment=SR 11:23 AM HR=60 bpm, JVZB=181/106 mmhg, SpO2=97.0 %, Resp=10 B/min, EtCO2=33 mmHg, Comment=SR 11:23 AM Time out was performed according to hospital policy. Conscious sedation and anesthesia was achieved (see medication log with in this report above) oparker 11:23 AM Time: :LOC: 4 = Oriented but drowsy oparker 11:23 AM Time: 11:08 Patient comfortable and pain free: Yes oparker 11:24 AM Time: 11:23 3 ml Lidocaine 2% to right radial Subcutaneous Given [facility] 11:25 AM Access obtained by percutaneous puncture. 6Fr 10cm Terumo Glidesheath sheath placed in right Radial artery. [id number] oparker 11:25 AM Pressure channel 2 zeroed. 11: AM Time: :26 Patient given 4,000 units Heparin, 200 mcg Nitroglycerin, and 2.5 mg Verapamil Intraarterial by Pete Archer MD. This is given to reduce risk of vessel spasm and thrombosis. oparker 11:26 AM Pressure channel 2 zeroed. 11: AM 0.035 260cm Navilyst 3mmJ wire [id number] oparker 11:27 AM 5Fr FL 3.5 catheter inserted over the wire [id number] oparker 11:28 AM HR=82 bpm, QUNY=806/102 mmhg, SpO2=97.0 %, Resp=10 B/min, EtCO2=31 mmHg, Comment=SR 11:28 AM Recorded Pressure: Ao, HR=82, Condition=Condition 1 (Aorta) Ao 122/97/110 11:29 AM Catheter removed oparker 11:30 AM LCA angiography performed in multiple views. oparker 11:32 AM Catheter removed oparker 11:32 AM 5Fr FR 4 catheter inserted over the wire DNC oparker 11:33 AM HR=73 bpm, HQFN=771/105 mmhg, SpO2=93.0 %, Resp=9 B/min, EtCO2=33 mmHg, Comment=SR 11:33 AM Recorded Pressure: Ao, HR=73, Condition=Condition 1 (Aorta) Ao 143/110/128 11:34 AM RCA angiography performed in multiple views. oparker 11:36 AM Catheter removed oparker 11:37 AM Recorded Pressure: LV, HR=59, Condition=Condition 1 (Left Ventricle) LV 164/18/20 11:38 AM 5Fr Pigtail catheter inserted over the wire DNC oparker 11:38 AM Catheter crossed the aortic valve and was selectively placed in the left ventricle. Pressures recorded on pullback for left heart catheterization. oparker 11:38 AM Recorded Pressure: LV, Ao, HR=54, Condition=Condition 1 (Left Ventricle) LV 99/44/49, (Aorta) Ao 117/98/108 11:38 AM Bolus angiogram of left Ventricle complete: 12 ml/sec for a total of 36 mls oparker 11:38 AM Catheter removed oparker 11:38 AM Wire removed oparker 11:38 AM HR=58 bpm, ZJYG=644/96 mmhg, SpO2=98.0 %, Resp=27 B/min, EtCO2=36 mmHg, Comment=SR 11:39 AM Time: 11:23 Patient comfortable and pain free: Yes oparker 11:39 AM Time: 11:23LOC: 5 = Fully awake and oriented or at pre-proc level oparker 11:39 AM Procedure completed at 11:39 12/05/2018 oparker 11:39 AM Sign out completed: Radiation Dose 328.91 mGy, 76.5 mGy/cm2 Fluoro Time: 3.2 Isovue 370 - 200ml contrast 75 ml given by Pete Archer MD. Complications: None. 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 Sedation minutes 24. Cardiac Rehab Consult needed: No. Confirmed administered medications: Yes oparker 11:39 AM Isovue 370 - 200ml,1 Bottle(s) used. oparker 11:40 AM Arterial sheath pulled, Vasc Band closure device used and was Successful S/N. oparker 11:40 AM 12 ml air in Vasc Band. oparker 11:40 AM Estimated Blood Loss: minimal oparker 11:40 AM Post ECG Sinus Bradycardia oparker 11:40 AM Post Blood Pressure 164/96 oparker 11:40 AM 11:40 Post Pulses Bilateral radial 2+ oparker 11:41 AM Information taught Cardiac Cath oparker 11:41 AM Education needs Procedure, Plan of Care, and Disease Process oparker 11:41 AM Learning barriers :None oparker 11:41 AM Education Methods Verbal oparker 11:41 AM Education evaluation Able to repeat information oparker 11:41 AM Site status No bleeding/hematoma - Rt Groin as reported by Tahira Campbell RT at 11:41 oparker 11:41 AM Did you address INDIRA flow and Dominance? YesCoronary Dominance: right oparker 11:43 AM Report given to tiera WALDEN Pt taken to Room #63. 11:43 oparker 11:44 AM Patient out of room: 11:44 oparker Complications Complication None Hemodynamics Pressures Site Systolic/A Wave Diastolic/V Wave Mean AO 122 97 110 AO 143 110 128 LV 164 18 20 LV 99 44 49 AO 117 98 108 Post Procedure Information Blood Pressure: 164/96 mmHg Rhythm: Sinus Bradycardia Post procedural instructions were given Closure Device Time Device Success/Fail 12/05/2018 11:44:00 AM Mechanical Compression Site Checks Time Location Status Staff Sheath In? Note 11:41 AM Rt Groin No bleeding/hematoma Tahira Campbell RT Pulses Time Site Pre-Procedure Post-Procedure Note 11:40:00 AM Bilateral radial 2+ Updated by Warren Rust RN on 12/05/2018 11:49:39 AM electronically signed on 12/05/2018 11:50:15 AM with status of Final
[2018-12-05 15:00] VITALS: BP 115/73
--- NOTE | 2018-12-05 15:09 | Discharge Summary ---
- NOTES TO OUTPATIENT PROVIDER Notes to Outpatient Provider: f/u with PCP one week. Orders not resulted at time of discharge: Pending orders 12/03/18 11:17 NM sommer perf SPECT multi [NM] Routine 12/04/18 14:10 CL Cardiac Catheterization [CL] Routine Date of Encounter: 12/05/18 Time of Encounter: 15:07 - Discharge Diagnosis (1) Chest pain Priority: Primary Status: Acute Qualifiers: Chest pain type: unspecified Qualified Code(s): R07.9 - Chest pain, unspecified (2) Acute kidney injury Priority: Primary Status: Acute (3) HLD (hyperlipidemia) Priority: Secondary Status: Chronic Qualifiers: Hyperlipidemia type: unspecified Qualified Code(s): E78.5 - Hyperlipidemia, unspecified (4) Hypertension Priority: Secondary Status: Acute Qualifiers: Hypertension type: essential hypertension Qualified Code(s): I10 - Essential (primary) hypertension (5) Morbid obesity with BMI of 50.0-59.9, adult Priority: Secondary Status: Acute Hospital course: Mr. Reed is a 57 year old male with known PMH of HTN, HLD, DM2 ad ?? [place] and morbidly obese pt presented to ER with sub sternal CP associated with SOB and diaphoresis. He was admitted in the hospital and placed him on security monitor. He denied any active CP Now. His Trop peaked at 0.05 and trended down to 0.04. Denied any active CP now. He did go for nuclear stress test which came back as slightly abnormal with small sized reversible perfusion defect which is mild to moderate in intensity in the basal- and mid-inferior segments. He was evaluated by logging equipment mechanic who did [facility] showed LVEF 55%, normal dominant right with no disease and normal left coronary artery. So will d/c him home in stable condition today. - Time Spent with Patient Total time spent providing and/or coordinating discharge services: - Discharge Medications Prescriptions: New Aspirin Enteric Coated [Aspirin EC] 81 mg PO DAILY #30 tablet. Continued Allopurinol [Zyloprim 300 MG] 300 mg PO DAILY amLODIPine [Norvasc] 5 mg PO DAILY Atorvastatin [Lipitor] 40 mg PO HS BuPROPion SR (12 HR) [Wellbutrin SR] 150 mg PO BID Furosemide [Lasix] 20 mg PO DAILY Isosorbide MONOnitrate [Isosorbide Mononitrate] 20 mg PO TID Pantoprazole Sodium [Protonix] 40 mg PO DAILY Cyanocobalamin (Vitamin B-12) [Vitamin B-12] 500 mcg PO DAILY Cholecalciferol (D-3) [Vitamin D] 5,000 unit PO DAILY Multivitamin [One Daily Multivitamin] 1 tab PO DAILY Ca Citrate/Mgox/Vit D3/B6/Min [Calcium Citrate Plus Tablet] 2 each PO DAILY Tizanidine HCl 8 mg PO HS Docusate Sodium [Stool Softener] 100 mg PO BID HYDROcodone/Acet 10/325 mg [Tropic 10-325 mg] 1 tab PO Q12H PRN PRN Reason: Pain Losartan Potassium 50 mg PO DAILY Home Medications: Allopurinol [Zyloprim 300 MG] 300 mg PO DAILY 02/10/18 [History] Atorvastatin [Lipitor] 40 mg PO HS 02/10/18 [History] BuPROPion SR (12 HR) [Wellbutrin SR] 150 mg PO BID 02/10/18 [History] Cholecalciferol (D-3) [Vitamin D] 5,000 unit PO DAILY 02/10/18 [History] Cyanocobalamin (Vitamin B-12) [Vitamin B-12] 500 mcg PO DAILY 02/10/18 [History] Furosemide [Lasix] 20 mg PO DAILY 02/10/18 [History] Isosorbide MONOnitrate [Isosorbide Mononitrate] 20 mg PO TID 02/10/18 [History] Multivitamin [One Daily Multivitamin] 1 tab PO DAILY 02/10/18 [History] Pantoprazole Sodium [Protonix] 40 mg PO DAILY 02/10/18 [History] amLODIPine [Norvasc] 5 mg PO DAILY 02/10/18 [History] Ca Citrate/Mgox/Vit D3/B6/Min [Calcium Citrate Plus Tablet] 2 each PO DAILY 12/02/18 [History] Docusate Sodium [Stool Softener] 100 mg PO BID 12/02/18 [History] Tizanidine HCl 8 mg PO HS 12/02/18 [History] HYDROcodone/Acet 10/325 mg [Tropic 10-325 mg] 1 tab PO Q12H PRN 12/04/18 [History] Losartan Potassium 50 mg PO DAILY 12/04/18 [History] Aspirin Enteric Coated [Aspirin EC] 81 mg PO DAILY #30 tablet. 12/05/18 [Rx] Allergies/Adverse Reactions: Allergy/AdvReac Type Severity Reaction Status Date / Time Enoxaparin [From Lovenox] Allergy Rash Verified 12/04/18 10:49 NSAIDS (Non-Steroidal AdvReac See Verified 12/04/18 10:49 Anti-Inflamma Comments tape Allergy See Uncoded 12/04/18 10:49 Comments Steroids AdvReac See Uncoded 12/04/18 10:49 Comments Date of admission: 12/02/18 22:23 Primary care physician: Roseann Victoria CNP Consults: 12/04/18 12:27 Consult to Cardiology [CONS] Routine Comment: Consulting Provider: Cardiology Erin Reason for Consult: Abnormal stress test Time Notified: 12:28 Call Completed: Yes - Constitutional Vitals: Temp Pulse Resp BP Pulse Ox 97.6 F 61 16 115/73 96 12/05/18 11:57 12/05/18 15:00 12/05/18 15:00 12/05/18 15:00 12/05/18 15:00 General appearance: Present: cooperative, A&O X 3, pleasant, no acute distress, obese, answers questions appropriately Exam: Gen: Alert, awake, Oriented to time,place and person Chest: Diminished breath sounds B/L, No wheezing, No crackles, No rales Heart: S1S2+ RRR No murmurs Abd: Soft, NT, BS +, No organomegaly Ext: No edema, pulses are palpable, No calf tenderness Neuro : Benign findings Skin: No rash. - Patient Status Disposition: Home, Self-Care Condition: Good Overall status at discharge: patient is back to baseline - Discharge Instructions Instructions: Left Heart Catheterization (DC) Follow Up With: Roseann Victoria CNP [Primary Care Provider] - 12/08/18 8:30 am - Diet and Activity Activity: increase activity as tolerated Diet: low salt diet
== END 2018-12-05 15:58 | disposition home or self-care (01) ==
LOC: 3BNU 19:15 → EMEROOARM 19:15 → SUATTDRO 22:23 → 3BNU 22:55
PROVIDERS: ADMIT Pediatrics; ATTEND Family Medicine